=== PATIENT | female | born 1985 | race Caucasian/White ===

== ENCOUNTER 2024-06-21 09:12 | Outpatient (RCR) | payer OTHER, SELFPAY ==
--- NOTE | 2024-05-21 15:56 | XR_ITS ---
Examination: Biophysical profile, ultrasound Date and time of exam: May 21, 2024 at 1600 hrs. Indications: Pre-existing diabetes, pelvic pain one week Technique: Multiple transabdominal sonographic images of the pelvis abdomen obtained. Attention is directed to the breathing movement, gross body movement, amniotic fluid volume and tone. Findings: Amniotic fluid index 16.2 cm Total biophysical profile is 8 of 8. breathing movement is 2. Gross body movement is 2. tone is 2. Qualitative amniotic fluid volume is 2 Impression: Biophysical profile is 8 of 8.
[2024-05-21 16:36] VITALS: BP 125/73; PULSE 79; RESP 16; TEMP 36.7
--- NOTE | 2024-05-21 17:03 | PC.NURSE ---
RN spoke with Dr. Prado, relayed preliminary US results and NST result. Per MD patient OK to discharge home
--- NOTE | 2024-05-24 15:42 | XR_ITS ---
Examination: Biophysical profile, ultrasound Date and time of exam: May 24, 2024 1546 hrs. Indications: Diagnosis pre-existing diabetes Technique: Multiple transabdominal sonographic images of the pelvis abdomen obtained. Attention is directed to the breathing movement, gross body movement, amniotic fluid volume and tone. Findings: Amniotic fluid index 13.1 cm Total biophysical profile is 8 of 8. breathing movement is 2. Gross body movement is 2. tone is 2. Qualitative amniotic fluid volume is 2 Impression: Biophysical profile is 8 of 8.
[2024-05-24 16:12] VITALS: BP 130/67; PULSE 81; RESP 18; TEMP 36.7
--- NOTE | 2024-05-28 15:47 | XR_ITS ---
Examination: Biophysical profile, ultrasound Date and time of exam: May 28, 2024 1555 hours INDICATIONS: Pre-existing diabetes diagnosis Technique: Multiple transabdominal sonographic images of the pelvis abdomen obtained. Attention is directed to the breathing movement, gross body movement, amniotic fluid volume and tone. Findings: Amniotic fluid index 13.3 cm Total biophysical profile is 8 of 8. breathing movement is 2. Gross body movement is 2. tone is 2. Qualitative amniotic fluid volume is 2 Impression: Biophysical profile is 8 of 8.
[2024-05-28 16:24] VITALS: BP 120/64; PULSE 85; RESP 18; TEMP 36.8
--- NOTE | 2024-05-31 15:24 | XR_ITS ---
Examination: Biophysical profile, ultrasound Date and time of exam: May 31, 2024 1528 hours INDICATIONS: Diagnosis pre-existing diabetes Technique: Multiple transabdominal sonographic images of the pelvis abdomen obtained. Attention is directed to the breathing movement, gross body movement, amniotic fluid volume and tone. Findings: Amniotic fluid index 10.2 cm Total biophysical profile is 8 of 8. breathing movement is 2. Gross body movement is 2. tone is 2. Qualitative amniotic fluid volume is 2 Impression: Biophysical profile is 8 of 8.
[2024-05-31 15:58] VITALS: BP 127/82; PULSE 78; RESP 16; TEMP 36.7
--- NOTE | 2024-06-04 15:46 | XR_ITS ---
EXAMINATION: US OB biophysical profile ORDERING PROVIDER: Angeline Ortez MD HISTORY: BIWEEKLY NST/BPP; PRE-EXISTING T2DM TECHNIQUE: Multiple transabdominal sonographic images were obtained by cardiac cath technologist and submitted for interpretation. COMPARISON: 05/31/2024, ultrasound biophysical profile. FINDINGS: FETUS: [place]. HEART MOTION: 153 beats/min. AMNIOTIC FLUID INDEX: 14.0 cm BREATHING MOVEMENT: 2 . GROSS BODY MOVEMENT: 2 . TONE: 2 . QUALITATIVE AMNIOTIC FLUID VOLUME: 2 TOTAL BIOPHYSICAL PROFILE: 8 of 8 . IMPRESSION: Single live intrauterine gestation with biophysical profile 8 of 8.
[2024-06-04 16:50] VITALS: BP 118/68; PULSE 78; RESP 16
--- NOTE | 2024-06-07 16:05 | XR_ITS ---
Examination: Biophysical profile, ultrasound Date and time of exam: June 07, 2024 at 1609 hrs. Indications: Diagnosis pre-existing diabetes Technique: Multiple transabdominal sonographic images of the pelvis abdomen obtained. Attention is directed to the breathing movement, gross body movement, amniotic fluid volume and tone. Findings: Amniotic fluid index 14.0 cm Total biophysical profile is 8 of 8. breathing movement is 2. Gross body movement is 2. tone is 2. Qualitative amniotic fluid volume is 2 Impression: Biophysical profile is 8 of 8.
[2024-06-07 16:45] VITALS: BP 112/66; PULSE 85; RESP 16; TEMP 36.7
--- NOTE | 2024-06-11 15:48 | XR_ITS ---
Examination: Biophysical profile, ultrasound Date and time of exam: June 11, 2024 1553 hours INDICATIONS: Diagnosis diabetes Technique: Multiple transabdominal sonographic images of the pelvis abdomen obtained. Attention is directed to the breathing movement, gross body movement, amniotic fluid volume and tone. Findings: Amniotic fluid index 13.1 cm Total biophysical profile is 8 of 8. breathing movement is 2. Gross body movement is 2. tone is 2. Qualitative amniotic fluid volume is 2 Impression: Biophysical profile is 8 of 8.
[2024-06-11 16:14] VITALS: BP 129/76; PULSE 79; RESP 16
--- NOTE | 2024-06-14 15:53 | XR_ITS ---
Examination: Biophysical profile, ultrasound Date and time of exam: June 14, 2024 1557 hours INDICATIONS: Diagnosis diabetes Technique: Multiple transabdominal sonographic images of the pelvis abdomen obtained. Attention is directed to the breathing movement, gross body movement, amniotic fluid volume and tone. Findings: Amniotic fluid index 13.4 cm Total biophysical profile is 8 of 8. breathing movement is 2. Gross body movement is 2. tone is 2. Qualitative amniotic fluid volume is 2 Impression: Biophysical profile is 8 of 8.
[2024-06-14 16:55] VITALS: BP 106/71; PULSE 100; RESP 16; TEMP 36.7
--- NOTE | 2024-06-18 09:16 | XR_ITS ---
Examination: Biophysical profile, ultrasound Date and time of exam: June 19, 2023 0921 hours INDICATIONS: Diagnosis diabetes, Technique: Multiple transabdominal sonographic images of the pelvis abdomen obtained. Attention is directed to the breathing movement, gross body movement, amniotic fluid volume and tone. Findings: Amniotic fluid index 16.8 cm Total biophysical profile is 8 of 8. breathing movement is 2. Gross body movement is 2. tone is 2. Qualitative amniotic fluid volume is 2 Impression: Biophysical profile is 8 of 8.
[2024-06-18 09:55] VITALS: BP 128/77; PULSE 70; RESP 16; TEMP 36.7
--- NOTE | 2024-06-21 09:21 | XR_ITS ---
Examination: Biophysical profile, ultrasound Date and time of exam: June 21, 2024 1039 hours INDICATIONS: Diagnosis diabetes Technique: Multiple transabdominal sonographic images of the pelvis abdomen obtained. Attention is directed to the breathing movement, gross body movement, amniotic fluid volume and tone. Findings: Amniotic fluid index 13.7 cm Total biophysical profile is 8 of 8. breathing movement is 2. Gross body movement is 2. tone is 2. Qualitative amniotic fluid volume is 2 Impression: Biophysical profile is 8 of 8.
[2024-06-21 11:00] VITALS: BP 121/76; PULSE 78; RESP 16; TEMP 36.7
== END 2024-06-21 23:59 | disposition home or self-care (01) ==
LOC: S4S1 09:12
PROVIDERS: PCP Family Medicine; Referring Provider Student in an Organized Health Care Education/Training Program; Visit Provider Student in an Organized Health Care Education/Training Program
DX: O24.113 Pre-existing type 2 diabetes mellitus, in pregnancy, third trimester (principal); E11.9 Type 2 diabetes mellitus without complications; Z3A.38 38 weeks gestation of pregnancy
CPT/HCPCS: 59025; 76819; J1885; J2274; J2405; J2590; J3010; J3490; J2270

== ENCOUNTER 2024-06-24 09:05 | Inpatient (IN) | payer OTHER, SELFPAY ==
[2024-06-24] VITALS (55 sets, daily range): BP systolic 121–154; BP diastolic 65–101; PULSE 50–105; RESP 12–22; TEMP 36.3–36.6; O2SAT 93–100; BMI 36.6
[2024-06-24 09:52] LABS: Basophils % (Auto) 0 % (0-2.5); Eosinophils # (Auto) 0.1 Thou/mm3 (0.0-0.5); Eosinophils % (Auto) 1 % (0-10); Hematocrit 37.6 % (36.0-46.0); Hemoglobin 13.5 g/dL (12.0-16.0); Immature Granulocytes % (Auto) 1 % (0-0); Immature Granulocytes Auto 0.06 Thou/mm3 (0.00-0.00); Lymphocytes # (Auto) 1.9 Thou/mm3 (1.0-4.8); Lymphocytes % (Auto) 15 % (10-50); Mean Corpuscular HGB Conc 35.9 g/dl (31.0-37.0); Mean Corpuscular Hemoglobin 30.7 pg (25.0-35.0); Mean Corpuscular Volume 86 fL (80-100); Monocytes # (Auto) 0.6 Thou/mm3 (0.0-0.8); Monocytes % (Auto) 5 % (0-12); Neutrophils % (Auto) 79 % (37-80); Nucleated Red Blood Cell % 0 /100 WBC (0); Platelet Count 301 Thou/mm3 (140-440); RDW Standard Deviation 39.8 fL (36.4-46.3); White Blood Count 12.7 Thou/mm3 (3.6-11.0)
[2024-06-24 10:27] LABS: Syphilis Nonreactive (Nonreactive)
--- NOTE | 2024-06-24 10:47 | XR_ITS ---
Examination: Biophysical profile, ultrasound Date and time of exam: June 24, 2024 11:01 AM INDICATIONS: Category 2 tracing, preop labor induction Technique: Multiple transabdominal sonographic images of the pelvis abdomen obtained. Attention is directed to the breathing movement, gross body movement, amniotic fluid volume and tone. Findings: Amniotic fluid index 13.4 cm Total biophysical profile is 4 of 8. breathing movement is 2. Gross body movement is 0 tone is 0 Qualitative amniotic fluid volume is 2 Impression: Biophysical profile is 4 of 8.
--- NOTE | 2024-06-24 10:47 | XR_ITS ---
Examination: age limited TECHNIQUE: Limited transabdominal sonographic images pelvis Exam date and time: June 24, 2024 1124 hours INDICATIONS: Preop induction, unknown presentation FINDINGS: A viable intrauterine gestation cephalic presentation spine maternal left Estimated weight 3172 g Estimated gestational age 37 weeks 1 day Cardiac motion 152 BPM IMPRESSION: Viable intrauterine gestation cephalic presentation
--- NOTE | 2024-06-24 12:21 | ESHP_ITS ---
Documentation for date of: 06/24/24 OB Labor/Induct. HPI History of Present Illness Chief complaint: Induction of labor : 6 Para: 4 Term pregnancies: 4 Living children: 4 History of Abortions: Spontaneous and Elective: 1 History of sections: No Date of last menstrual period: 09/25/23 RANDY: 07/05/24 Gestational Age (weeks): 38 Gestational Age (days): 2 Gestational age based on last menstrual period: 39 History of present illness: 38-year-old -0-1-4 who presents to labor and delivery for induction of labor. On presentation heart rate tracing was noted to have minimal variability. We proceeded to perform a biophysical profile and the score was 4 out of 8 with points lost for movement and tone. Patient is a insulin-dependent type 2 DM, she also has chronic hypertension but not on meds. The results were reviewed with the patient and the plan is to proceed with the urgent delivery History of Present Adequate Care: Yes Labs Labs: Negative: Hepatitis B, HIV, Chlamydia, Gonorrhea and Group Beta Strep Review of Systems Review of Systems Systems Reviewed: All systems reviewed, normal except as documented Past Medical History Surgical History SURGICAL: Negative Section Meds Home Medications and Allergies Home Medications ?Medication ?Instructions ?Recorded ?Confirmed ?Type [id number] 1 cap PO QDAY 05/21/24 06/24/24 History aspirin 81 mg chewable tablet 81 mg PO QDAY 05/21/24 0 06/24/24 History insulin glargine 14 unit subcut .after meals 05/21/24 06/24/24 History blood sugar diagnostic (True 06/24/24 06/24/24 Histor y Metrix Glucose Test Strip) Allergies Allergy/AdvReac Type Severity Reaction Status Date / Time adhesive tape AdvReac Unknown Itching Verified 06/24/24 09:54 OB Exam Physical Exam Vital signs: Temp Pulse Resp BP Pulse Ox 98 F 75 18 134/78 H 100 06/24/24 09:29 06/24/24 11:45 06/24/24 09:29 06/24/24 11:45 06/24/24 12:19 Constitutional Constitutional: no acute distress Routine HEENT Exam Head: Present normocephalic and atraumatic Eye: Present EOMI and PERRL ENT: Present mucous membranes moist Routine Neck Exam Neck: Present supple and trachea midline Routine Cardiovascular Exam Cardiovascular: Present RRR Routine Abdominal Exam Abdominal: Present soft and normoactive bowel sounds Detailed Labor and Delivery Exam Dilation (cm): 1 Effacement (%): 50 Cervix position: mid station: -3 Consistency: soft Presentation: Vertex Baseline heart rate: 140 monitor accelerations: None monitor decelerations: Variable tank terminal gauger variability: Minimal (3-5) Contraction frequency (min): 5 Routine Extremities Exam Extremities: Present full ROM Routine Skin Exam Skin: Present intact, dry and warm Routine Neurological Exam Neurological: Present alert, oriented X3 and CN II-XII intact Routine Psychiatric Exam Psychiatric: Present normal affect and normal thought process OB Results Labs 06/24/24 09:32 Labs: Short CBC 06/24/24 Range/Units 09:32 WBC 12.7 H (3.6-11.0) Thou/mm3 Hgb 13.5 (12.0-16.0) g/dL Hct 37.6 (36.0-46.0) % Plt Count 301 (140-440) Thou/mm3 OB Assessment & Plan Assessment and Plan (1) Insulin-dependent diabetes mellitus during , antepartum: Status: Acute Assessment and plan: Admit to inpatient status for repeat low transverse IV access, CBC, type and screen, LR at 125, RPR, COVID-19 test GBS negative Ancef 2 g prior to surgery start Kerr catheter to drainage SCDs for DVT prophylaxis Anesthesia to preop for spinal anesthesia Scheduled for surgery. Fingerstick blood glucose before meals and at bedtime as per protocol Further management after stat delivery (2) Minimal variability in heart rate: Status: Acute
[2024-06-24] MEDS: ceFAZolin/D5W 2 GM IV 2 GM/100 ML BAG IV (12:28)
[2024-06-24] MEDS: CITRIC ACID/SODIUM CITR 15 ML UDC (BICITRA) 30 ML PO (12:28)
[2024-06-24] MEDS: FAMOTIDINE INJ 10 MG/ML VIAL 2 ML 20 MG IV (12:28)
[2024-06-24] MEDS: RINGERS LACTATED 1000 ML 1,000 ML 100 ML IV (12:30)
--- NOTE | 2024-06-24 13:44 | ESOP_ITS ---
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 Identity was confirmed by double identifiers and she was placed on the operating table. Spinal anesthesia was administered and she was positioned in the supine position. The abdomen and perineum were prepped in the usual sterile fashion and a Kerr catheter was placed to continuous drainage. Sterile drapes were applied. The incision site was tested for adequacy of anesthesia. A Pfannenstiel skin incision was made with a scalpel and carried to the subcutaneous fat up to the rectus fascia. The rectus fascia was incised on either side of the midline and the incisions were extended bilaterally. The fascia was gently dissected off the ventral surface of the rectus muscle both superiorly and inferiorly. The rectus bellies were gently in the midline and the peritoneum was identified and entered bluntly using the surgeon's finger. The peritoneal opening was now stretched to create an benton quate opening for access to the uterus. He O-ring retractor was placed for adequate visualization. The anterior surface of the uterus was palpated. The bladder reflection was identified and a Nelson Bain low transverse uterine incision was made in the lower uterine segment taking care to avoid the bladder. Uterine entry was accomplished bluntly and the opening was stretched to create adequate room. The amniotic membranes were now ruptured and clear amniotic fluid was released. The fetus was noted to be in the vertex position. The head was gently elevated out of the maternal pelvis and single loop of nuchal cord was found around the neck. The cord was released and the rest of the shoulders and body were delivered by gentle fundal pressure. Umbilical cord was doubly clamped, divided and the was handed over to the waiting team. Cord gas samples were obtained. The placenta was delivered by gentle traction on the umbilical cord. The interior of the uterus was now thoroughly cleaned of all blood and debris and membranes. The hysterotomy angles were grasped by a pair of Allis clamps and the hysterotomy was closed using 1 Monocryl suture in 2 layers. The first layer was used to approximate the muscle in a running locked fashion, the second layer was used to approximate the thickness of the myometrium and uterine serosa in a imbricated manner. Once the repair was completed the hysterotomy was inspected and noted to be adequately hemostatic. Attention was now turned to the left fallopian tube. The tube was grasped using Ludivina's clamp and elevated to expose the mesosalpinx. Salpingectomy was performed using the LigaSure vessel sealing device and the entire tube was handed over for pathological examination. The same procedure was repeated on the contralateral side. The salpingectomy sites were inspected and noted to be adequately hemostatic. The hysterotomy was once again inspected and hemostasis was noted to be satisfactory. The He retractor was now removed. The peritoneal edges were re approximated. The rectus muscles were re approximated. The rectus fascia was now repaired using 0 Vicryl suture in a running fashion. The subcutaneous layer was now copiously irrigated using warm normal saline. All bleeding points were cauterized using the Bovie. The subcutaneous fat was closed using 3-0 Vicryl. The skin was closed using 4-0 Monocryl in a subcuticular fashion. The skin was cleaned and a sterile dressing was applied. The patient was now undraped, the abdomen and back were thoroughly cleaned and she was now transferred to the recovery room in a stable and awake condition. The patient tolerated the entire procedure well. No complications were encountered. All instrument, sponge and lap counts were correct x2. Estimated blood loss (ml): 750 Complications: none Surgical staff Operation Date: 06/24/24 12:45 <No data on this case meets the specified criteria> Diagnosis Discharge Diagnosis (1) Minimal variability in heart rate: Status: Acute (2) Insulin-dependent diabetes mellitus during , antepartum: Status: Acute (3) delivery delivered: Status: Acute Problem List Completed Was Problem List Reviewed/Reconciled?: Yes
--- NOTE | 2024-06-24 13:46 | PD.LDDELS ---
Data ([place]) Data Hx Section: No : 6 Term: 4 : 0 : 1
[2024-06-24] MEDS: OXYTOCIN in NS 20 units 20 UNIT/1,000 ML BAG 125 UNIT IV (14:38)
--- NOTE | 2024-06-24 18:13 | OBDSUM_ITS ---
Data ([place]) Data Hx Section: No : 6 Para: 4 Term: 4 : 0 : 1 Delivery Data ([place]) Labor Data ROM Date: 06/24/24 ROM Time: 13:11 Rupture Type: AROM Amniotic Fluid: Meconium Stained Delivery Data Labor Onset Stage 1 Date: 06/24/24 Labor Onset Stage 1 Time: 13:11 Labor Onset Stage 2 Date: 06/24/24 Labor Onset Stage 2 Time: 13:11 Delivery Date: 06/24/24 Delivery Time: 13:11 Placenta Delivery Date: 06/24/24 Placenta Delivery Time: 13:11 Delivered by: Klever Mendoza Delivery nurse: Miriam Vazquez Other staff at delivery: Nursery Nurse Other staff at delivery: Baby Care/Safety And Occupational Health Manager Other staff at delivery: Britney Birmingham Other staff at delivery: MD Karla, Karlos Delivery Method Delivery: Delivery Type: Primary Anesthesia Type Primary Anesthesia: Spinal Delivery Room Medications Other Intrapartum Medications: Yes Placenta Cord Sample: Cord Blood Obtained Umbilical Cord Umbilical Vessels: 3 Nuchal Cord: x1 Body Cord: None Pearl Data ([place]) Pearl Data Gender: Male Weight Grams: 3250 1 Minute Total: 3 5 Minute Total: 8
[2024-06-24] MEDS: RINGERS LACTATED 1000 ML 1,000 ML 125 ML IV (22:01)
[2024-06-25] MEDS: ACETAMINOPHEN IVPB 1,000 MG/100 ML VIAL 250 MG IV ×3 (00:37→11:14)
[2024-06-25 02:26] VITALS: BP 105/69; PULSE 73; RESP 16; TEMP 36.6; O2SAT 95
[2024-06-25 05:38] VITALS: BP 110/70; PULSE 70; RESP 16; TEMP 36.3; O2SAT 96
[2024-06-25 05:50] LABS: Basophils % (Auto) 0 % (0-2.5); Eosinophils # (Auto) 0.1 Thou/mm3 (0.0-0.5); Eosinophils % (Auto) 1 % (0-10); Hematocrit 31.8 % (36.0-46.0); Immature Granulocytes % (Auto) 1 % (0-0); Immature Granulocytes Auto 0.06 Thou/mm3 (0.00-0.00); Lymphocytes # (Auto) 2.2 Thou/mm3 (1.0-4.8); Lymphocytes % (Auto) 19 % (10-50); Mean Corpuscular HGB Conc 34.6 g/dl (31.0-37.0); Mean Corpuscular Hemoglobin 30.6 pg (25.0-35.0); Mean Corpuscular Volume 89 fL (80-100); Monocytes # (Auto) 0.8 Thou/mm3 (0.0-0.8); Monocytes % (Auto) 7 % (0-12); Neutrophils # (Auto) 8.4 Thou/mm3 (1.8-7.7); Neutrophils % (Auto) 73 % (37-80); Nucleated Red Blood Cell % 0 /100 WBC (0); Platelet Count 250 Thou/mm3 (140-440); RDW Standard Deviation 41.7 fL (36.4-46.3); Red Blood Count 3.59 Miln/mm3 (4.00-5.20); White Blood Count 11.6 Thou/mm3 (3.6-11.0)
[2024-06-25 08:00] VITALS: BP 132/81; PULSE 65; RESP 18; TEMP 36.6; O2SAT 96
[2024-06-25] MEDS: DOCUSATE SOD 100 MG CAPSULE PO (09:28)
[2024-06-25 11:05] VITALS: BP 105/65; PULSE 62; RESP 16; TEMP 36.9
[2024-06-25] MEDS: KETOROLAC INJ 30 MG/ML VIAL IVP (15:52)
[2024-06-25 20:00] VITALS: BP 109/69; PULSE 80; RESP 18; TEMP 36.8
--- NOTE | 2024-06-25 21:44 | PD.LDPPPRG ---
Subjective Subjective Interval history: Patient is postop day [address] Mendoza for category 2 tracing. Baby is in the NICU on antibiotics. Patient is doing well resting comfortably in bed. She has been getting up to see the baby. She is pumping breastmilk. No fevers chills pain is controlled. Exam Vital Signs Temp Pulse Resp BP Pulse Ox O2 Del Method 98.4 F 62 16 105/65 96 Room Air 06/25/24 11:05 06/25/24 11:05 06/25/24 11:05 06/25/24 11:05 06/25/24 08:00 06/25/24 11:05 Narrative Exam Patient is alert and oriented her pain is controlled. She appears in no apparent distress Routine Abdominal Exam Abdominal: Present soft and wound Comments: Patient's abdomen is soft her fundus is firm her dressing is off and her incision appears clean dry and intact Objective Labs 06/25/24 04:53 Labs: Laboratory Results - last 24 hr 06/25/24 04:53 WBC 11.6 H RBC 3.59 L Hgb 11.0 L D Hct 31.8 L MCV 89 MCH 30.6 MCHC 34.6 RDW Std Deviation 41.7 Plt Count 250 D Neut % (Auto) 73 Lymph % (Auto) 19 Tensas % (Auto) 7 Eos % (Auto) 1 Baso % (Auto) 0 Neut # (Auto) 8.4 H Lymph # (Auto) 2.2 Tensas # (Auto) 0.8 Eos # (Auto) 0.1 Baso # (Auto) 0.0 Immature Gran # (Auto) 0.06 H Absolute Nucleated RBC 0.00 Immature Gran % 1 H Nucleated RBC % 0 Assessment & Plan Problem List (1) Minimal variability in heart rate: Problem details: Patient postop day #1 primary for category 2-3 tracing Status: Acute (2) Insulin-dependent diabetes mellitus during , antepartum: Problem details: Patient currently on sliding scale insulin Status: Acute (3) delivery delivered: Problem details: Pain controlled. Increase ambulation. P.O. pain medications working well. Labs stable and tolerating a general diet Status: Acute Time Spent With Patient Time: Total time spent is greater than 50% in coordination of care (as documented) at patient's floor/unit and/or counseling patient: Time with patient: less than 15 minutes
[2024-06-25] MEDS: INSULIN LISPRO (AdmeLOG) 1 UNIT/0.01 ML UNIT 3 UNIT SC (22:02)
[2024-06-25] MEDS: IBUPROFEN TAB 400 MG TABLET 800 MG PO (23:09)
[2024-06-25 23:35] VITALS: BP 110/70; PULSE 93; RESP 18; TEMP 36.8; O2SAT 98
[2024-06-26 03:54] VITALS: BP 115/74; PULSE 83; RESP 18; TEMP 36.6; O2SAT 96
[2024-06-26 07:11] VITALS: BP 124/78; PULSE 80; RESP 20; TEMP 36.6; O2SAT 96
[2024-06-26] MEDS: DOCUSATE SOD 100 MG CAPSULE PO (07:40)
[2024-06-26] MEDS: IBUPROFEN TAB 400 MG TABLET 800 MG PO (07:40)
--- NOTE | 2024-06-26 08:50 | PD.LDPPPRG ---
Subjective Subjective Interval history: Delivery type: Patient doing well this morning. No acute complaints. Ambulating, tolerating p.o. and voiding without difficulty. HTN/Pre-Eclampsia screen: No chest pain, shortness of breath, headache, visual changes, epigastric or right upper quadrant pain. Breast-feeding, lochia diminishing. Bowel: Flatus+/ BM+ Exam Vital Signs Temp Pulse Resp BP Pulse Ox O2 Del Method 97.9 F 80 20 124/78 96 Room Air 06/26/24 07:11 06/26/24 07:11 06/26/24 07:11 06/26/24 07:11 06/26/24 07:11 06/26/24 07:11 Constitutional Constitutional: no acute distress Routine HEENT Exam Head: Present normocephalic and atraumatic Eye: Present EOMI and PERRL ENT: Present mucous membranes moist Routine Neck Exam Neck: Present supple and trachea midline Routine Respiratory Exam Respiratory: Present chest non-tender, lungs clear, normal breath sounds and no resp distress Routine Cardiovascular Exam Cardiovascular: Present RRR Routine Abdominal Exam Abdominal: Present soft and normoactive bowel sounds Routine Extremities Exam Extremities: Present full ROM Routine Skin Exam Skin: Present intact, dry and warm Routine Neurological Exam Neurological: Present alert, oriented X3 and CN II-XII intact Routine Psychiatric Exam Psychiatric: Present normal affect and normal thought process Objective Labs 06/25/24 04:53 Assessment & Plan Problem List (1) Minimal variability in heart rate: Status: Acute (2) Insulin-dependent diabetes mellitus during , antepartum: Status: Acute (3) delivery delivered: Status: Acute Assessment and plan: PPD/POD#2 1. Continue routine care 2. Transition to PO meds. 3. Encourage to ambulate/ breast-feed 4. Anticipate discharge home today. Time Spent With Patient Time: Total time spent is greater than 50% in coordination of care (as documented) at patient's floor/unit and/or counseling patient: Time with patient: less than 15 minutes
--- NOTE | 2024-06-26 08:51 | ESDS_ITS ---
DS: Providers Provider Date of admission: 06/24/24 09:05 Primary care physician: Physician No Primary/Family Admitting Provider: Klever Mendoza MD Attending Provider on Admission: Angeline Ortez MD Consults: 06/24/24 14:24 Referral Routine Comment: Attending Provider on DC: Klever Mendoza MD Discharging Provider: Klever Mendoza MD DS: Diagnosis Discharge Diagnosis (1) delivery delivered: Status: Acute (2) Insulin-dependent diabetes mellitus during , antepartum: Status: Acute Problem List Completed Was Problem List Reviewed/Reconciled?: Yes Summary/Hosp Course Brief History: 38-year-old -0-1-4 who presents to labor and delivery for induction of labor. On presentation heart rate tracing was noted to have minimal variability. We proceeded to perform a biophysical profile and the score was 4 out of 8 with points lost for movement and tone. Patient is a insulin-dependent type 2 DM, she also has chronic hypertension but not on meds. The results were reviewed with the patient and the plan is to proceed with the urgent delivery Peripartum Data Procedures: Procedures Operation Date: 06/24/24 12:45 Actual Procedure Side Surgeon p w/tubal OB Klever Mendoza MD Time Spent with Patient Time attestation: Total time spent providing and/or coordinating discharge services: Exam Vital Signs Temp Pulse Resp BP Pulse Ox O2 Del Method 97.9 F 80 20 124/78 96 Room Air 06/26/24 07:11 06/26/24 07:11 06/26/24 07:11 06/26/24 07:11 06/26/24 07:11 06/26/24 07:11 Discharge Plan Plan Patient Disposition: HOME (Self Care) Patient condition on transfer: Stable Prescriptions/Referrals Prescriptions/Med Rec: New hydrocodone-acetaminophen 5-325 mg tablet 1 tab PO Q6H MDD 4 PRN (Reason: pain) 5 Days Qty: 20 0RF ibuprofen 800 mg tablet 800 mg PO Q6H PRN (Reason: pain) 10 Days Qty: 40 0RF docusate sodium [Stool Softener] 100 mg capsule 100 mg PO QDAY 30 Days Qty: 30 0RF Continued (DME) True Metrix Glucose Test Strip Strip Patient Comments: USE DIRECTED 4 TIMES A DAY [id number] [ Multi-DHA(with vit K)] 1 cap PO QDAY Discontinued aspirin 81 mg tablet,chewable 81 mg PO QDAY insulin glargine [Lantus Solostar U-100 Insulin] 14 unit subcut .after meals Patient Comments: fasting and 1 hour after meals Referrals: Angeline Ortez MD [Physician] - No Primary/Family,Physician [Primary Care Provider] - Patient/Caregiver Discharge Instructions Meds to Beds: Yes Discharge Activity: activity as tolerated Education Materials: After Delivery Concerns, After a , C Sect ion Dc Print Language: Tongan Stand Alone Forms: [facility]weta Award Info., Patient Portal Info Letter, DC from Surgery Discharge Order Discharge Orders: Discharge (Routine); Ordered 06/26/24 Ordered By: Klever Mendoza Planned Discharge Date 06/26/24
[2024-06-26] MEDS: ACETAMINOPHEN 325 MG TABLET 650 MG PO (10:01)
[2024-06-26 12:20] VITALS: BP 136/78; PULSE 69; RESP 20; TEMP 36.5; O2SAT 97
== END 2024-06-26 12:20 | disposition home or self-care (01) | DRG 783 ==
LOC: S4SX 12:40 → S4NX 12:53
PROVIDERS: Admitting Provider Obstetrics & Gynecology; Visit Provider Student in an Organized Health Care Education/Training Program
PROC: 0UL70ZZ Occlusion of Bilateral Fallopian Tubes, Open Approach (ICD-10-PCS; CPT 59514; principal; 2024-06-24 12:30)
DX: O34.211 Maternal care for low transverse scar from previous cesarean delivery (principal); O24.12 Pre-existing type 2 diabetes mellitus, in childbirth; Z37.0 Single live birth; O16.4 Unspecified maternal hypertension, complicating childbirth; O69.81X0 Labor and delivery complicated by cord around neck, without compression, not applicable or unspecified; Z3A.38 38 weeks gestation of pregnancy; O77.0 Labor and delivery complicated by meconium in amniotic fluid; Z79.4 Long term (current) use of insulin
CPT/HCPCS: 36415; 59409; 76815; 76819; 85025; 86780; 86850; 86900; 86901; 94762; A4649; J0131; J0689; J1815; J1885; J2274; J2405; J2590; J3010; J3490; J7120; A9270; J2270

== ENCOUNTER 2024-07-03 20:09 | Emergency (ER) | payer OTHER, SELFPAY ==
[2024-07-03 20:11] VITALS: BMI 33.6
[2024-07-03 20:16] VITALS: BP 150/86; PULSE 77; RESP 18; TEMP 36.6; O2SAT 98
--- NOTE | 2024-07-03 21:04 | PC.NURSE ---
STAFF CALLED PATIENT IN LOBBY AND OUTSIDE, NO ANSWER RECEIVED.
--- NOTE | 2024-07-03 21:12 | XR_ITS ---
Examination: Duplex scan of the lower extremity, unilateral left complete Date and time of exam: July 03, 2024 at 2135 hrs. Indications: June 25, 1999 2511 by left leg swelling Technique: Duplex scan of the extremity veins using B-mode/grayscale imaging and Doppler spectral analysis and color flow Attention is directed to internal echogenicity, compression and augmentation involving these veins, color flow assessment, spectral analysis Findings: Major deep venous structures in the extremity demonstrate normal course and caliber. There is no evidence of deep vein thrombosis. Normal color flow and spectral analysis Impression: Negative for DVT..
--- NOTE | 2024-07-03 21:23 | PD.EDADULT ---
ED General RME/HPI General Chief complaint: Extremity Problem,Nontraumatic Stated complaint: LEFT LOWER LEG PAIN, HIGH BP, RECENT Time Seen by Provider: 07/03/24 21:11 Arrival date/time: 07/03/24 20:09 CC: Left lower extremity pain HPI ongoing for the past 7 days, patient is status post 10 days ago, pain started while still admitted in the hospital secondary to her being in the PICU. The patient has been discharged home and is continuously had worsening left leg pain no prior history of similar events denies fall repetitive motion. Related Data Home Medications ?Medication ?Instructions ?Recorded ?Confirmed [id number] 1 cap PO QDAY 05/21/24 06/24/24 blood sugar diagnostic (True 06/24/24 06/24/24 Metrix Glucose Test Strip) Previous Rx's ?Medication ?Instructions ?Recorded docusate sodium 100 mg capsule 100 mg PO QDAY 30 days #30 caps 06/24/24 (Stool Softener) ibuprofen 800 mg tablet 800 mg PO Q6H PRN pain 10 days #40 06/24/24 tabs Allergies Allergy/AdvReac Type Severity Reaction Status Date / Time adhesive tape AdvReac Unknown Itching Verified 07/03/24 20:10 Review of Systems Review of Systems Narrative Review of Systems: GEN: No fever, no chills, no weight loss EYES: No discharge, no visual changes, no pain HEENT: No ear pain, no congestion, no sore throat PULM: No shortness of breath, no cough, no congestion CV: No chest pain, no dyspnea on exertion, no palpitations GI: No nausea, no vomiting, no diarrhea, no pain, no constipation : No frequency, no urgency, no dysuria MUSC/SKEL: No joint pain, no back pain,+ leg pain SKIN: No rash PSYCH: No hallucinations, no depression HEME/LYMPH: No easy bleeding or bruising tendencies NEURO: No weakness, no headache ED Exam Narrative Physical exam: [General: Obese not in any acute distress Head normocephalic HEENT: Within acceptable limits Neck is supple nontender Chest equal chest rise nontender to palpation Respiratory: Clear to auscultation no wheezes crackles or rubs CV: Rate rhythm is regular no murmurs rubs or clicks Abdomen is distended secondary recent and delivery. Soft nontender no masses positive bowel sounds all 4 quadrants Back: No CVA tenderness no spinous process tenderness from cervical spine thoracic and lumbar spine Skin: Intact no petechiae rash induration ulceration or crepitus Extremities: Left lower extremity: The patient has mild tenderness in bilateral medial and lateral aspect of the lower leg, there is no thigh or hamstring tenderness with palpation hypersensitivity to the dorsum of the foot. Cap refill less than 2 seconds neurosensory intact no such complaints on the right leg. Upper extremities no edema no complaints either. Moving all other extremities against resistance cap refill less than 2 seconds neurosensory intact Neuro: Awake alert oriented x3 Glascow coma 15 no focal deficits] Course Quality Measures none Orders Category Date Time Status US venous doppler LE LT Stat Exams 07/03/24 21:12 Completed Vital Signs Vital signs: Vital Signs Temperature 97.9 F 07/03/24 20:16 Pulse Rate 77 07/03/24 20:16 Respiratory Rate 18 07/03/24 20:16 Blood Pressure 150/86 H 07/03/24 20:16 Pulse Oximetry (%) 98 07/03/24 20:16 Oxygen Delivery Method Room Air 07/03/24 20:16 MDM Patient data External records reviewed:: [facility] previous records Clinical information provided by:: patient Social determinants that could affect healthcare access:: none Patient has the following chronic illnesses:: Recent How is presenting disease/condition affected by chronic disease/condition?: uneffected by Evaluation data The following diagnostics were reviewed and interpreted by me:: radiology exam(s) Lab and/or radiology exams considered but not ordered:: Ultrasound of the lower extremities negative for DVT. Interpretation Summary: Leg hyperesthesia Medications Medications considered but not ordered:: None Medication administrations:: None Consultations Consultation(s) initiated? (list below): No Diagnosis Differential Diagnosis ED Complaint MDM: DVT compartment syndrome. Being Most likely diagnosis given after review of the tests above:: Leg hyperesthesia Admission Indicated Admission indicated?: not indicated Explain why admission is indicated or not indicated:: Stable for outpatient follow-up Admission Request Was there a request for admission?: No Disposition Plan Disposition Plan: Discharge Discharge Attestation Discharge Attestation: The patient and all family members were given an opportunity to ask questions and understood the discharge instructions. Discharge instructions specifically effects, indications for sooner follow up or return to the emergency department, and the expected course of current diagnosis. Patient condition: Stable Medical Decision Making Differential Diagnosis Differential Diagnosis: DVT compartment syndrome. Being Discharge Plan Plan Patient Disposition: HOME (Self Care) Patient condition on transfer: Stable Prescriptions/Referrals Prescriptions/Med Rec: No Action (DME) True Metrix Glucose Test Strip Strip Patient Comments: USE DIRECTED 4 TIMES A DAY ibuprofen 800 mg tablet 800 mg PO Q6H PRN (Reason: pain) 10 Days Qty: 40 0RF docusate sodium [Stool Softener] 100 mg capsule 100 mg PO QDAY 30 Days Qty: 30 0RF [id number] [ Multi-DHA(with vit K)] 1 cap PO QDAY Referrals: No Primary/Family,Physician [Primary Care Provider] - In 1 week Angeline Ortez MD [Physician] - In 1 week Problem List Clinical Impression: Leg pain Patient/Caregiver Discharge Instructions Education Materials: ED Myalgias Additional Instructions: Ultrasound of your leg is negative for DVT. Because you are breast-feeding we encourage you to just take Tylenol for pain. If there is a worsening of symptoms follow-up with Dr. Kiran or return the emergency room for reevaluation. Print Language: Samoan Stand Alone Forms: Shweta Award Info., Work/School Release, Patient Portal Info Letter LETICIA/WAI Supervising Physician LETICIA/WAI Supervising Physician: Hitesh Collins ENP
[2024-07-03 22:35] VITALS: BP 139/85; PULSE 68; RESP 17; TEMP 36.6; O2SAT 98
== END 2024-07-03 22:35 | disposition home or self-care (01) ==
PROVIDERS: Emergency Provider Emergency Medicine
DX: O90.89 Other complications of the puerperium, not elsewhere classified (principal); M79.662 Pain in left lower leg
CPT/HCPCS: 93971; 99284

== ENCOUNTER 2024-07-12 14:23 | Emergency (ER) | payer OTHER, SELFPAY ==
[2024-07-12 14:24] VITALS: BMI 32.7
[2024-07-12 15:12] VITALS: BP 121/83; PULSE 85; RESP 16; TEMP 37.3; O2SAT 97
--- NOTE | 2024-07-12 15:24 | EDRME_ITS ---
Rapid Medical Screening Exam RME Arrival date/time: 07/12/24 14:23 This is a 38-year-old female presents to the emergency department sent over by her CERTIFIED ENERGY MANAGER for rule out preeclampsia by her DEFENSIVE FIRE CONTROL SYSTEMS OPERATOR. Reports she was noted to have elevated blood pressure in office today was sent over for evaluation. Patient also complaining of irritation and rash to her area. I have greeted and performed a focused initial assessment of this patient. Initial appropriate labs ordered at this time. A comprehensive ED assessment and evaluation of the patient and analysis of all test and completion of medical decision making process will be conducted by additional ED provider. Chief Complaint: Recheck/Abnormal Lab/Rx Time Seen by Provider: 07/12/24 15:04 Vital signs: Vital Signs Temperature 99.1 F 07/12/24 15:12 Pulse Rate 85 07/12/24 15:12 Respiratory Rate 16 07/12/24 15:12 Blood Pressure 121/83 07/12/24 15:12 Pulse Oximetry (%) 97 07/12/24 15:12 Oxygen Delivery Method Room Air 07/12/24 15:12
[2024-07-12 15:57] LABS: Basophils # (Auto) 0.1 Thou/mm3 (0.0-0.2); Basophils % (Auto) 1 % (0-2.5); Eosinophils # (Auto) 0.2 Thou/mm3 (0.0-0.5); Eosinophils % (Auto) 2 % (0-10); Hematocrit 43.5 % (36.0-46.0); Hemoglobin 14.8 g/dL (12.0-16.0); Immature Granulocytes % (Auto) 0 % (0-0); Immature Granulocytes Auto 0.02 Thou/mm3 (0.00-0.00); Lymphocytes % (Auto) 31 % (10-50); Mean Corpuscular Hemoglobin 30.1 pg (25.0-35.0); Mean Corpuscular Volume 88 fL (80-100); Monocytes # (Auto) 0.6 Thou/mm3 (0.0-0.8); Monocytes % (Auto) 6 % (0-12); Neutrophils # (Auto) 5.9 Thou/mm3 (1.8-7.7); Neutrophils % (Auto) 61 % (37-80); Nucleated Red Blood Cell % 0 /100 WBC (0); Platelet Count 390 Thou/mm3 (140-440); RDW Standard Deviation 38.7 fL (36.4-46.3); Red Blood Count 4.92 Miln/mm3 (4.00-5.20); White Blood Count 9.8 Thou/mm3 (3.6-11.0)
[2024-07-12 16:20] LABS: Collection Type, Urine Clean Catch; Squamous Epithelial Cell,Urine 0 /hpf (0-5)
[2024-07-12 16:27] LABS: Bilirubin,Urine Negative (Negative); Blood,Urine Negative (Negative); Clarity,Urine Clear (Clear/Hazy); Color,Urine Lt-Yellow (Lt Yel-Yel); Glucose, Urine Negative (Negative); Ketones,Urine Negative (Negative); Leukocyte Esterase,Urine Negative (Negative); Nitrite,Urine Negative (Negative); Protein,Urine Negative (Neg - Trace); RBC,Urine 1 /hpf (0-3); Specific Gravity,Urine 1.016 (1.001-1.035); Urobilinogen,Urine Negative mg/dL (0.0-1.0); WBC,Urine 8 /hpf (0-5)
[2024-07-12 16:31] LABS: Alanine Aminotransferase 35 U/L (10-49); Albumin, Serum 4.4 gm/dL (3.5-5.0); Albumin/Globulin Ratio 1.4 (1.2-2.2); Alkaline Phosphatase 111 U/L (46-116); Anion Gap 7 (7-16); Aspartate Amino Transferase 22 U/L (0-34); BUN/Creatinine Ratio 15 Ratio (12-20); Bilirubin,Total 0.4 mg/dL (0.3-1.2); Blood Urea Nitrogen 12 mg/dL (9-23); Calcium 9.6 mg/dL (8.3-10.6); Calcium (Corrected) 9.6 mg/dL (8.5-10.1); Carbon Dioxide 29.3 mMol/L (20.0-31.0); Chloride 104 mMol/L (98-107); Creatinine (Component) 0.8 mg/dL (0.6-1.3); Estimated Creatinine Clearance 94.1 mL/min (>60); Globulin 3.1 gm/dL (2.3-3.5); Glucose 163 mg/dL (74-106); Lipase 47 U/L (12-53); Magnesium 2.4 mg/dL (1.6-2.6); Osmolality,Calculated 283 (275-295); Potassium 4.5 mMol/L (3.4-5.1); Sodium 140 mMol/L (136-145); Total Protein 7.5 gm/dL (5.7-8.2); eGFR > 60 See Note
--- NOTE | 2024-07-12 19:28 | EDNOTE_ITS ---
ED Recheck Abnl Lab Rx-RME/HPI General Chief Complaint: Recheck/Abnormal Lab/Rx Stated Complaint: PRE-ECLAMPSIA; CITE INFECTED Time Seen by Provider: 07/12/24 15:04 Arrival date/time: 07/12/24 14:23 RME / HPI RME / HPI narrative: 38-year-old female patient came in for evaluation after patient was seen by her satellite project site monitor earlier today for elevated blood pressure. Patient been having symptoms of elevated blood pressure for the last few days. When they are today and was noted to have blood pressure still slightly elevated was sent to us to rule out preeclampsia. Patient is denying any headache no swelling to the leg no other complaints noted. Was also seen today by her satellite project site monitor for possible infected C- section site currently on antibiotic. Related Data Home Medications ?Medication ?Instructions ?Recorded ?Confirmed [id number] 1 cap PO QDAY 05/21/24 06/24/24 blood sugar diagnostic (True 06/24/24 06/24/24 Metrix Glucose Test Strip) Previous Rx's ?Medication ?Instructions ?Recorded docusate sodium 100 mg capsule 100 mg PO QDAY 30 days #30 caps 06/24/24 (Stool Softener) Allergies Allergy/AdvReac Type Severity Reaction Status Date / Time adhesive tape AdvReac Unknown Itching Verified 07/12/24 14:27 Review of Systems Review of Systems Narrative Review of Systems: Review of system reviewed and within normal limits except mentioned in HPI ED Exam Narrative Physical exam: VITAL SIGNS: Reviewed. GENERAL APPEARANCE: Alert and interactive, follows commands, no acute distress, HEAD AND FACE: Non-traumatic. ENT: PERRL, pink conjunctivitis, eyelid no trauma, Mucous membrane moist. NECK: Supple, nontender, no nuchal rigidity. CHEST: No tenderness, no crepitus, no paradoxical movement, no retractions. LUNGS: Clear, well ventilated, symmetric, no rales, no wheezing, no ronchi, no stridor, good breath sounds bilaterally. HEART: Regular rate, regular rhythm, no murmur, no gallops. ABDOMEN: Soft, positive bowel sounds, nondistended, no guarding, nontender, no rebound, no masses, RECTAL: Deferred. GENITAL: Deferred. NEUROLOGICAL: Gross motor function intact sensory function intact, Appropriate for age. MUSCULOSKELETAL: low back nontender, full range of motion. EXTREMITIES: Nontender, full range of motion., No edema to lower extremities SKIN: Color pink, dry, no rash, no lacerations, no abrasions, no contusions. LYMPHATICS: Deferred. Course Quality Measures none Orders Category Date Time Status CBC Stat Lab 07/12/24 15:35 Completed Comprehensive Metabolic Panel Stat Lab 07/12/24 15:35 Completed Lipase Stat Lab 07/12/24 15:35 Completed Mag [Magnesium] Stat Lab 07/12/24 15:35 Completed Urinalysis Stat Lab 07/12/24 16:05 Completed Vital Signs Vital signs: Vital Signs Temperature 99.1 F 07/12/24 15:12 Pulse Rate 85 07/12/24 15:12 Respiratory Rate 16 07/12/24 15:12 Blood Pressure 121/83 07/12/24 15:12 Pulse Oximetry (%) 97 07/12/24 15:12 Oxygen Delivery Method Room Air 07/12/24 15:12 Recheck / Abnormal Lab / Rx MDM Narrative MDM Narrative:: 38-year-old female patient came in for evaluation after patient was seen by her satellite project site monitor earlier today for elevated blood pressure. Patient been having symptoms of elevated blood pressure for the last few days. When they are today and was noted to have blood pressure still slightly elevated was sent to us to rule out preeclampsia. Patient is denying any headache no swelling to the leg no other complaints noted. Was also seen today by her satellite project site monitor for possible infected C- section site currently on antibiotic. Patient blood pressure was noted to be 121/83, urinalysis did not show any proteinuria, CBC did not show any leukocytosis. CMP unremarkable. I doubt preeclampsia at this time. Patient appears nontoxic and hemodynamically stable. Patient discharged home and instructed to follow-up with primary care provider in 24 to 48 hours. Instructed to return to the emergency department immediately if worsening of symptoms Patient data External records reviewed:: None Clinical information provided by:: none Social determinants that could affect healthcare access:: none Patient has the following chronic illnesses:: None How is presenting disease/condition affected by chronic disease/condition?: no chronic disease Evaluation data The following diagnostics were reviewed and interpreted by me:: lab results Lab and/or radiology exams considered but not ordered:: None Interpretation Summary: See results MDM Medications / Prescriptions Medications or Prescriptions considered but not ordered:: None Medication administrations:: None Consultations Consultation(s) initiated? (list below): No Diagnosis Recheck Differential Diagnosis: other (Elevated blood pressure, anxiety, preeclampsia) Most likely diagnosis given after review of the tests above:: No preeclampsia Admission Indicated Admission indicated?: not indicated Explain why admission is indicated or not indicated:: Stable Admission Request Was there a request for admission?: No Disposition Plan Disposition Plan: Discharge Discharge Attestation Discharge Attestation: The patient was given an opportunity to ask questions and understood the discharge instructions. Discharge instructions specifically effects, indications for sooner follow up or return to the emergency department, and the expected course of current diagnosis. Patient condition: Stable Discharge Plan Plan Patient Disposition: HOME (Self Care) Disposition Comment: None Prescriptions/Referrals Prescriptions/Med Rec: No Action (DME) True Metrix Glucose Test Strip Strip Patient Comments: USE DIRECTED 4 TIMES A DAY docusate sodium [Stool Softener] 100 mg capsule 100 mg PO QDAY 30 Days Qty: 30 0RF [id number] [ Multi-DHA(with vit K)] 1 cap PO QDAY Referrals: No Primary/Family,Physician [Primary Care Provider] - In 1 week Problem List Clinical Impression: Hypertension Patient/Caregiver Discharge Instructions Discharge Activity: activity as tolerated Education Materials: Hypertension Dc Additional Instructions: Thank you for the opportunity for serving you today. You are stable for discharged . You are advised to: Follow-up with your PCP in 1 to 2 days Return to ED for worsening of symptoms Increase oral fluids Today your blood pressure was not normal, there is no sign of preeclampsia Print Language: Welsh Stand Alone Forms: Shweta Award Info., Patient Portal Info Letter PA/WAI Supervising Physician LETICIA/WAI Supervising Physician: MD Niya
== END 2024-07-12 19:44 | disposition home or self-care (01) ==
PROVIDERS: Nurse Practitioner Primary Care; Emergency Provider Emergency Medicine
DX: O16.5 Unspecified maternal hypertension, complicating the puerperium (principal)
CPT/HCPCS: 36415; 80053; 81001; 83690; 83735; 85025; 99283